=== PATIENT | male | born 1940 | race Caucasian/White ===

== ENCOUNTER 2018-09-15 11:09 | Emergency (ER) | payer OTHER ==
[2018-09-15 11:55] VITALS: BP 147/67
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
== END 2018-09-15 12:35 | disposition home or self-care (01) ==
LOC: UCCORT 11:09
DX: S43.401A Unspecified sprain of right shoulder joint, initial encounter (principal); V89.2XXA Person injured in unspecified motor-vehicle accident, traffic, initial encounter; Y92.9 Unspecified place or not applicable; I10 Essential (primary) hypertension; I48.91 Unspecified atrial fibrillation; Z79.01 Long term (current) use of anticoagulants; Z87.891 Personal history of nicotine dependence
CPT/HCPCS: 99201; G0463